=== PATIENT | female | born 1950 | race Caucasian/White ===

== ENCOUNTER 2017-12-31 10:57 | Outpatient (CLI) ==
[2015-01-23 00:45] VITALS: BMI 27.1
== END 2017-12-31 10:58 | disposition home or self-care (01) ==
LOC: RAD 10:57
PROVIDERS: ATTEND Internal Medicine
DX: Z12.31 Encounter for screening mammogram for malignant neoplasm of breast (principal)
CPT/HCPCS: 77067

== ENCOUNTER 2018-01-21 09:00 | Outpatient (CLI) ==
[2015-01-23 00:45] VITALS: BMI 27.1
--- NOTE | 2018-01-21 09:50 | CT ---
EXAM: CT of the cervical spine without contrast History: Neck pain. Technique: Multiplanar CT images through the cervical spine were obtained without the administration of IV contrast Findings: The visualized upper lungs are clear. The visualized airway remains patent. Reversal of the normal cervical lordosis. No acute fracture or subluxation of the cervical spine. N o prevertebral soft tissue swelling. Predental space is not widened. Moderate to severe disc space narrowing at C5-6 and C6-7 with endplate sclerosis and osteophyte formation. Mild to moderate disc s pace narrowing at C4-5. Bilateral thyroid nodules. C2-3: No significant bony central canal stenosis or bony neural foraminal narrowing. C3-4: No significant bony central canal stenosis. Severe right and mild to moderate left bony neura l foraminal narrowing secondary to uncovertebral and facet hypertrophy. C4-5: No significant bony central canal stenosis. Severe right and moderate left bony neural forami nal narrowing secondary to uncovertebral and facet hypertrophy. C5-6: Mild to moderate bony central canal stenosis. Moderate to severe bilateral bony neural forami nal narrowing secondary to uncovertebral and facet hypertrophy. C6-7: Mild to moderate bony central canal stenosis. Moderate to severe bilateral bony neural forami nal narrowing secondary to uncovertebral and facet hypertrophy. Impression: 1. No acute osseous abnormality of the cervical spine. 2. Moderate to severe degenerative disc disease at C5-6 and C6-7. 3. Level by level analysis as detailed above. 4. Bilateral thyroid nodules. Correlate with thyroid ultrasound.
--- NOTE | 2018-01-21 10:01 | US ---
EXAM: Ultrasound bilateral carotid duplex. HISTORY: Neck pain. Hypertension. Syncope. COMPARISON: 08/13/2015. TECHNIQUE: Multiple [place] scale and color Doppler images were obtained. FINDINGS: Please note that estimates of internal carotid artery stenoses are based upon NASCET crite bruno. Right carotid: Mild plaquing noted without 50% or greater stenosis. Peak systolic velocity measurem ent in the right internal carotid artery is 0.8 meters per second. Right internal to common carotid artery peak systolic velocity ratio measures 1.2. End diastolic velocity measurement in the right in ternal carotid artery is 0.3 meters per second. Flow in the right vertebral artery is antegrade. Left carotid: Mild plaquing noted without 50% or greater stenosis. Peak systolic velocity measureme nt in the left internal carotid artery is 0.7 meters per second. Left internal to common carotid art rissa peak systolic velocity ratio measures 1.0. End diastolic velocity measurement in the left international marketing coordinator al carotid artery measures 0.3 meters per second. Flow in the left vertebral artery is antegrade. IMPRESSION: 1. Mild, less than 50%, stenosis in the right and left internal carotid arteries. 2. Antegrade flow in both vertebral arteries.
--- NOTE | 2018-01-21 10:04 | CT ---
EXAM: CT of the head with and without contrast History: Syncope. Comparison: Head CT 22,015 Technique: Multiplanar CT images through the head were obtained with and without the administration of IV contrast Findings: The visualized paranasal sinuses and mastoid air cells are clear in general. No acute katie varial abnormalities. Intracranially the ventricular and cisternal spaces are normal in size, shape and configuration for a patient of this age. No dominant mass or midline shift. No hydrocephalous. No acute intracranial hemorrhage or abnormal extraaxial fluid collections. No abnormal contrast enhancement. Impression: Unremarkable study
== END 2018-01-21 09:01 | disposition home or self-care (01) ==
LOC: RAD 09:00
PROVIDERS: ATTEND Internal Medicine
DX: R55 Syncope and collapse (principal); I10 Essential (primary) hypertension; M54.2 Cervicalgia

== ENCOUNTER 2018-06-25 09:53 | Outpatient (CLI) | payer OTHER ==
[2015-01-23 00:45] VITALS: BMI 27.1
--- NOTE | 2018-06-25 10:37 | DI ---
EXAM: Chest two view, frontal and lateral views. HISTORY: Restrictive lung disease. COMPARISON: 01/22/2015. FINDINGS: The heart size is normal. Aortic atherosclerotic calcifications present. There is no pul monary vascular congestion. The lungs are clear save for calcified granulomatous changes. No pleura l effusion or pneumothorax is seen. No acute osseous abnormality identified. Since the prior study, there has been no significant interval change. IMPRESSION: No acute cardiopulmonary process.
--- NOTE | 2018-06-25 10:44 | DEXA ---
EXAM: DEXA scan. HISTORY: Post menopausal. COMPARISON: 04/23/2007. TECHNIQUE: [employer] [id number]. DEXA scan lumbar spine performed. Quality of the study is good. BMD is 1.132 grams per square centi meter. T-score -0.4. Z-score 1.0. DEXA scan hips performed. Quality of the study is good. BMD 0.923 grams per square centimeter. T-sc ore -0.7. Z-score 0.6. IMPRESSION: According to the World Health Organization classification, lumbar spine and hip bone mineral density demonstrates normal mineralization, with no increased fracture risk. Ten-year major osteoporotic fra cture risk is 14.2%. Ten-year hip fracture risk is 1.4%. Since the prior study, there has been no s ignificant interval change.
== END 2018-06-25 09:54 | disposition home or self-care (01) ==
LOC: RAD 09:53
PROVIDERS: ATTEND Internal Medicine
DX: Z78.0 Asymptomatic menopausal state (principal); J98.4 Other disorders of lung; R55 Syncope and collapse

== ENCOUNTER 2022-11-16 18:54 | Inpatient (IN) ==
--- NOTE | 2022-11-16 18:58 | ED.PDOC ---
General ED Provider: Dr. ARNOLDO CHACON MD Chief Complaint: Non-specific Complaint Stated Complaint: Patient presents with headache, fever, nausea, emesis and myalgias. She had onset of symptoms one day ago. Denies chest pain, dyspnea, cough, abdominal pain. She did have urinary frequency 3 days ago though this improved after she took Azo. Time Seen by Provider: 11/16/22 18:58 Primary Care Provider: KHUSHBOO ESCOBAR Nursing and Triage Documentation Reviewed and Agree: Yes Does patient meet sepsis criteria?: Yes If yes, has appropriate treatment been initiated?: Yes System Inflammatory Response Syndrome: Temp 101F or Greater and Pulse >90 BPM Sepsis Protocol: For patient's 13 years and over: Temp is 96.8 and below OR 101 and greater Pulse >90 BPM Resp >20/minute Acutely Altered Mental Status Are patient's symptoms suggestive of a new infection, such as: -Pneumonia -Skin, Soft Tissue -Endocarditis -UTI -Bone, Joint Infection -Implantable Device -Acute Abdominal Infection -Wound Infection -Meningitis -Blood Stream Catheter Infection -Unknown Miscellaneous Complaint Exam Febrile Illness/Adult Complaint/Exam Onset/Duration: one day Symptoms Are: Still present Timing: Constant Highest Temperature Recorded: 103.9 Initial Severity: Mild Current Severity: Severe Aggravating: Reports None Alleviating: Reports None Associated Signs and Symptoms: Reports Headache, Nausea, Vomiting and Myalgia Pseudomonas Risk Factors: Reports None Serious Bacterial Infection Risk Factors: Reports None Current Antibiotic Use: No Related Surgical History: None Review of Systems Review Of Systems Constitutional: Reports Fever and Malaise Eyes: Reports No symptoms Ears, Nose, Mouth, Throat: Reports No symptoms Respiratory: Reports No symptoms Cardiac: Reports No symptoms GI: Reports Nausea and Vomiting : Reports No symptoms Musculoskeletal: Reports Muscle pain Skin: Reports No symptoms Neurological: Reports Headache Endocrine: Reports No symptoms Hematologic/Lymphatic: Reports No symptoms All Other Systems: Reviewed and Negative PFSH Female Reproductive History Menstrual Hx Hysterectomy: No Hx Tubal Ligation: No Physical Exam Physical Exam Appearance: Reports Ill-appearing, No pain distress, Well-nourished and Other (Patient is alert and oriented. She is vomiting intermittently during examination. ) Ill-appearing: Moderate Pain Distress: None Eyes: Reports MILA and EOMI ENT: Reports Nose normal, Oropharynx normal and Dry mucosa Neck: Supple Respiratory: Reports Airway patent, Breath sounds clear and Breath sounds equal Cardiovascular: Reports No rub, No murmur and Tachycardia GI/: Reports Soft, Nontender, No masses and Bowel sounds normal Musculoskeletal: Reports Not Examined Skin: Reports Warm and Dry Neurological: Reports Motor intact, Alert and Oriented Psychiatric: Reports Affect appropriate and Mood appropriate Interpretation Radiology Interpretation Radiology Interpretation By: Radiologist Exam Interpreted: Portable CXR (no acute cardiopulmonary findings) EKG Interpretation Time of EKG #1: 19:12 Rate: Tachy (148bpm) Rhythm: Sinus Ectopy: PACs [place]: NL ST Segment: Other (depression leads V5-V6) Interpretation: sinus tachycardia, PACS, possible lateral subendocardial injury Re-Evaluation Re-Evaluation Time of Re-Evaluation: 20:19 Status: Improved Vital Signs Stable: Yes (afebrile, pulse 90s) Pain Level: headache improved Appearance: NAD Critical Care Note Critical Care Note Total Critical Care Time (mins): 0 Course Course Hematology/Chemistry: 11/16/22 19:21 11/16/22 19:21 Orders, Labs, Meds: Lab Review 11/16/22 11/16/22 11/16/22 19:20 19:20 19:21 WBC 8.59 RBC 3.94 L Hgb 11.8 L Hct 35.8 L MCV 90.9 MCH 29.9 MCHC 33.0 RDW Coeff of David 13.4 Plt Count 151 Immature Gran % (Auto) 0.3 Neut % (Auto) 96.2 H Lymph % (Auto) 3.0 L [place] % (Auto) 0.3 Eos % (Auto) 0.1 Baso % (Auto) 0.1 Neut # (Auto) 8.3 H Lymph # (Auto) 0.3 L [place] # (Auto) 0.0 L Eos # (Auto) 0.0 Baso # (Auto) 0.0 Immature Gran # (Auto) 0.0 Puncture Site Base Excess O2 Saturation ABG pH ABG pCO2 ABG pO2 ABG HCO3 ABG Total CO2 Jt Test Hemoglobin Oxyhemoglobin Carboxyhemoglobin Total Hemoglobin FiO2 % Sodium Potassium Chloride Carbon Dioxide Anion Gap BUN Creatinine Estimated GFR (MDRD) BUN/Creatinine Ratio Glucose Lactic Acid Calcium Magnesium Total Bilirubin AST ALT Alkaline Phosphatase Troponin I Total Protein Albumin Globulin Albumin/Globulin Ratio Urine Color Urine Clarity Urine pH Ur Specific [place] Urine Protein Urine Glucose (UA) Urine Ketones Urine Blood Urine Nitrite Urine Bilirubin Urine Urobilinogen Ur Leukocyte Esterase Urine Microscopic RBC Urine Microscopic WBC Ur Squamous Epith Cells Urine Bacteria Urine Mucus Influ A Molecular Assay Negative by naat Influ B Molecular Assay Negative by naat SARS CoV-2 RNA Rapid JARROD Negative 11/16/22 11/16/22 11/16/22 19:21 19:24 19:37 WBC RBC Hgb Hct MCV MCH MCHC RDW Coeff of David Plt Count Immature Gran % (Auto) Neut % (Auto) Lymph % (Auto) [place] % (Auto) Eos % (Auto) Baso % (Auto) Neut # (Auto) Lymph # (Auto) [place] # (Auto) Eos # (Auto) Baso # (Auto) Immature Gran # (Auto) Puncture Site Lb Base Excess 0 O2 Saturation 98.6 H ABG pH 7.57 H* ABG pCO2 24.0 L ABG pO2 100.0 ABG HCO3 22.0 ABG Total CO2 22.7 Jt Test + Hemoglobin 1.0 Oxyhemoglobin 95.6 Carboxyhemoglobin 3.7 H Total Hemoglobin 12.0 FiO2 % 21.0 Sodium 135.7 Potassium 3.16 L Chloride 106.6 Carbon Dioxide 22.5 Anion Gap 9.76 BUN 38.9 H Creatinine 1.32 H Estimated GFR (MDRD) 39.00 BUN/Creatinine Ratio 29.46 Glucose 126.4 H Lactic Acid 1.26 Calcium 8.48 Magnesium 1.72 Total Bilirubin 1.30 AST 36.3 H ALT 29.9 Alkaline Phosphatase 164.6 H Troponin I < 0.012 Total Protein 7.33 Albumin 3.95 Globulin 3.38 Albumin/Globulin Ratio 1.16 Urine Color Urine Clarity Urine pH Ur Specific [place] Urine Protein Urine Glucose (UA) Urine Ketones Urine Blood Urine Nitrite Urine Bilirubin Urine Urobilinogen Ur Leukocyte Esterase Urine Microscopic RBC Urine Microscopic WBC Ur Squamous Epith Cells Urine Bacteria Urine Mucus Influ A Molecular Assay Influ B Molecular Assay SARS CoV-2 RNA Rapid JARROD 11/16/22 20:35 WBC RBC Hgb Hct MCV MCH MCHC RDW Coeff of David Plt Count Immature Gran % (Auto) Neut % (Auto) Lymph % (Auto) [place] % (Auto) Eos % (Auto) Baso % (Auto) Neut # (Auto) Lymph # (Auto) [place] # (Auto) Eos # (Auto) Baso # (Auto) Immature Gran # (Auto) Puncture Site Base Excess O2 Saturation ABG pH ABG pCO2 ABG pO2 ABG HCO3 ABG Total CO2 Jt Test Hemoglobin Oxyhemoglobin Carboxyhemoglobin Total Hemoglobin FiO2 % Sodium Potassium Chloride Carbon Dioxide Anion Gap BUN Creatinine Estimated GFR (MDRD) BUN/Creatinine Ratio Glucose Lactic Acid Calcium Magnesium Total Bilirubin AST ALT Alkaline Phosphatase Troponin I Total Protein Albumin Globulin Albumin/Globulin Ratio Urine Color Yellow Urine Clarity Slightly Urine pH 5.5 Ur Specific [place] 1.020 Urine Protein 2+ H Urine Glucose (UA) Negative Urine Ketones Negative Urine Blood 2+ H Urine Nitrite Negative Urine Bilirubin Negative Urine Urobilinogen 2.0 H Ur Leukocyte Esterase 1+ H Urine Microscopic RBC 30-50 Urine Microscopic WBC 50-100 Ur Squamous Epith Cells Not present Urine Bacteria 4+ Urine Mucus 3+ Influ A Molecular Assay Influ B Molecular Assay SARS CoV-2 RNA Rapid JARROD Orders Category Date Time Status ABG DRAW REQUEST Stat CARDIO 11/16/22 19:15 Completed EKG-(ED ONLY) Stat CARDIO 11/16/22 19:07 Completed EKG-(ED ONLY) Stat CARDIO 11/16/22 21:34 Ordered NEBULIZER TREATMENT Stat CARDIO 11/16/22 20:50 Ordered Saline Lock [ED IV/MEDIPORT/POWERPORT] .ONCE EMERGENCY 11/16/22 19:07 Active ABG COOX Stat LAB 11/16/22 19:24 Completed BLOOD CULTURE (ED ONLY) Stat LAB 11/16/22 19:37 Received CBC W/ AUTO DIFF Stat LAB 11/16/22 19:21 Completed CMP [COMPREHENSIVE METABOLIC PANEL] Stat LAB 11/16/22 19:21 Completed COVID [SARS COV-2 RNA RAPID JARROD] Stat LAB 11/16/22 19:20 Completed FLU A & B MOLECULAR [FLU A/B MOLECULAR] Stat LAB 11/16/22 19:20 Completed LACTIC ACID Stat LAB 11/16/22 19:37 Completed MAGNESIUM Stat LAB 11/16/22 19:21 Completed TROPONIN I Stat LAB 11/16/22 19:21 Completed URINALYSIS C & S IF INDICATED Stat LAB 11/16/22 20:35 Completed URINE CULTURE Stat LAB 11/16/22 20:35 Received 0.9 % Sodium Chloride [Saline Flush] MEDS 11/16/22 19:07 Active 1 syr IVF PRN PRN Acetaminophen [Tylenol] MEDS 11/16/22 19:21 Discontinued 650 mg RC ONCE STA Cephalexin [Keflex] MEDS 11/16/22 21:30 Discontinued 500 mg PO ONCE STA Diltiazem HCl [Cardizem Inj] MEDS 11/16/22 21:50 Discontinued 20 mg IVP ONCE STA Ipratropium/Albuterol Neb [Duoneb] MEDS 11/16/22 20:50 Discontinued 3 ml NEB ONCE STA Ketorolac Tromethamine [Toradol] MEDS 11/16/22 19:15 Discontinued 30 mg IVP ONCE STA Ondansetron HCl/Pf [Zofran 4 mg/2 ml] MEDS 11/16/22 19:07 Discontinued 8 mg IVP ONCE STA Potassium Chloride [K-Dur] MEDS 11/16/22 21:29 Discontinued 40 meq PO ONCE STA Sodium Chloride 0.9% [Sodium Chloride] 1,000 ml MEDS 11/16/22 19:07 Discontin ued IV BOLUS Sodium Chloride 0.9% [Sodium Chloride] 1,000 ml MEDS 11/16/22 20:23 Discontinu ed IV BOLUS CXR [CHEST, 1V AP ONLY] Stat RADS 11/16/22 19:17 Completed Medications Generic Name Dose Route Start Last Admin Trade Name Freq PRN Reason Stop Dose Admin Sodium Chloride 1 syr 11/16/22 19:07 0.9% Sodium Chloride 10 Ml Disp.Syrin IVF PRN PRN To flush IV Discontinued Medications Generic Name Dose Route Start Last Admin Trade Name Freq PRN Reason Stop Dose Admin Acetaminophen 650 mg 11/16/22 19:21 11/16/22 19:32 Acetaminophen 650 Mg Supp.Rect RC 11/16/22 19:22 650 mg ONCE STA Administration Albuterol/Ipratropium 3 ml 11/16/22 20:50 11/16/22 21:11 Ipratropium/Albuterol Vial.Neb NEB 11/16/22 20:51 3 ml ONCE STA Administration Cephalexin 500 mg 11/16/22 21:30 11/16/22 21:35 Cephalexin 500 Mg Capsule PO 11/16/22 21:31 500 mg ONCE STA Administration Diltiazem HCl 20 mg 11/16/22 21:50 Diltiazem Hcl Inj 25 Mg/5 Ml Vial IVP 11/16/22 21:51 ONCE STA Sodium Chloride 1,000 mls @ 1,000 mls/hr 11/16/22 19:07 11/16/22 19:32 Sodium Chloride IV 11/16/22 20:06 1,000 mls/hr BOLUS STA Administration Sodium Chloride 1,000 mls @ 1,000 mls/hr 11/16/22 20:23 11/16/22 20:45 Sodium Chloride IV 11/16/22 21:22 1,000 mls/hr BOLUS STA Administration Ketorolac Tromethamine 30 mg 11/16/22 19:15 11/16/22 19:32 Ketorolac Tromethamine 30 Mg/Ml Vial IVP 11/16/22 19:16 30 mg ONCE STA Administration Ondansetron HCl 8 mg 11/16/22 19:07 11/16/22 19:32 Ondansetron Hcl/Pf 4 Mg/2 Ml Sdv IVP 11/16/22 19:08 8 mg ONCE STA Administration Potassium Chloride 40 meq 11/16/22 21:29 11/16/22 21:35 Potassium Chloride 20 Meq Tab PO 11/16/22 21:30 40 meq ONCE STA Administration Vital Signs: Temp Pulse Resp BP Pulse Ox 11/16/22 19:50 99.5 F 96 24 H 146/63 H 98 11/16/22 18:59 103.9 F H 153 H 20 179/94 H 90 L Discharge Plan Discharge Patient Disposition: PLACED OBSERVATION Discharge Problem: Acute viral syndrome, Acute urinary tract infection, Acute hypokalemia Instructions: Urinary Tract Infection in Women (DC), Viral Syndrome (ED) Prescriptions: New ondansetron 8 mg tablet,disintegrating 8 mg PO Q8H PRN (Reason: nausea and vomiting) Qty: 14 0RF cephalexin 250 mg capsule 250 mg PO QID Qty: 28 0RF No Action aspirin 81 MG tablet,delayed release (DR/EC) 81 mg PO QPM verapamil 80 MG tablet 160 mg PO BID Label Comments: TOOK 2 TONIGHT AT 8PM Centrum Silver 1 EACH tablet 1 tab PO DAILY Vitamin C 1,000 mg Tablet Extended Release 1,000 mg PO Q12H Elderberry 200 mg Capsule 200 mg PO DAILY cholecalciferol (vitamin D3) [Vitamin D3] 50 mcg (2,000 unit) Capsule 50 mcg PO DAILY Breztri Aerosphere 160-9-4.8 mcg/actuation HFA aerosol inhaler See Rx Instructions .ROUTE .COMPLEX Rx Instructions: take as directed Did you review [place] STAFF ANALYST for ALL controlled substances?: Not Applicable Discussed opioids are addictive and Narcan is available by prescription or from pharmacy.: No Activity Restrictions/Additional Instructions: Take tylenol or ibuprofen as directed for fever or headache. ED Provider: ARNOLDO CHACON Condition: Stable Physician Progress Note: []
[2022-11-16 19:03] VITALS: BMI 27.9
[2022-11-16] MEDS ORDERED: ZOFRAN 4 MG/2 ML IVP STA (19:07)
[2022-11-16] MEDS ORDERED: SODIUM CHLORIDE 1,000 ML IV STA ×2 (19:07→20:23)
[2022-11-16] MEDS ORDERED: TORADOL IVP STA (19:15)
[2022-11-16] MEDS ORDERED: TYLENOL RC STA (19:21)
[2022-11-16 19:28] LABS: BASOPHILS % (AUTO) 0.1 % (0.0-3.0); EOSINOPHILS % (AUTO) 0.1 % (0.0-7.0); HEMATOCRIT 35.8 % (37.0-47.0); HEMOGLOBIN 11.8 g/dl (12.0-16.0); IMMATURE GRANULOCYTE % (AUTO) 0.3 % (0.0-5.0); LYMPHOCYTES # (AUTO) 0.3 K/uL (0.60-3.4); MEAN CORPUSCULAR HEMOGLOBIN 29.9 pg (27.0-31.0); MEAN CORPUSCULAR VOLUME 90.9 fl (81.0-99.0); MONOCYTES % (AUTO) 0.3 (0-10); NEUTROPHILS # (AUTO) 8.3 K/ul (2.0-6.9); NEUTROPHILS % (AUTO) 96.2 % (42.2-75.2); PLATELET COUNT 151 10^3/uL (140-440); RDW COEFFICIENT OF VARIATION 13.4 % (11.6-14.8); RED BLOOD COUNT 3.94 10^6/ul (4.20-5.40); WHITE BLOOD COUNT 8.59 K/ul (4.6-10.2)
[2022-11-16 19:31] LABS: ABG O2 HGB 95.6 % (95-100); BEecf 0 (-2.0-3.0); COHb 3.7 (0.5-1.5); TCO2 22.7 (19-24); sO2 98.6 % (94-98)
[2022-11-16 19:34] LABS: ABG PH 7.57 (7.35-7.45)
[2022-11-16 19:41] LABS: ALANINE AMINOTRANSFERASE 29.9 U/L (0-35); ALBUMIN 3.95 g/dL (3.5-5.0); ALKALINE PHOSPHATASE 164.6 U/L (53-141); ASPARTATE AMINO TRANSFERASE 36.3 U/L (14-36); BLOOD UREA NITROGEN 38.9 mg/dL (7-17); CALCIUM 8.48 mg/dL (8.4-10.2); CARBON DIOXIDE 22.5 mmol/L (22-30.0); CHLORIDE 106.6 mmol/L (98-107); CREATININE 1.32 mg/dL (0.60-1.30); GLUCOSE 126.4 mg/dL (74-106); MAGNESIUM 1.72 mg/dL (1.6-2.3); POTASSIUM 3.16 mmol/L (3.5-5.1); SODIUM 135.7 mmol/L (134.5-145); TOTAL PROTEIN 7.33 g/dL (6.3-8.2)
[2022-11-16 19:53] LABS: TROPONIN I < 0.012 ng/ml (0.0000-0.120)
--- NOTE | 2022-11-16 19:55 | DI ---
EXAM: CHEST RADIOGRAPH TECHNIQUE: Single frontal chest radiograph. HISTORY: Nausea and fever. COMPARISON: 06/25/2018. FINDINGS: Mild pulmonary scarring bilaterally. Old calcified granulomatous disease. Otherwise clear lungs. The heart size is normal. There is calcification in the aorta consistent with atherosclerosis. There is no pleural effusion. There is no pneumothorax. IMPRESSION: 1. Mild pulmonary scarring bilaterally. 2. Old calcified granulomatous disease. 3. Atherosclerosis. 4. Otherwise unremarkable chest radiograph.
[2022-11-16 20:01] LABS: MOLECULAR FLU A NEGATIVE BY NAAT (NEGATIVE); MOLECULAR FLU B NEGATIVE BY NAAT (NEGATIVE)
[2022-11-16 20:04] LABS: SARS COV-2 RNA RAPID NAAT NEGATIVE (NEGATIVE)
[2022-11-16] MEDS ORDERED: DUONEB NEB STA (20:50)
[2022-11-16 21:17] LABS: BILIRUBIN,URINE Negative (NEGATIVE); CLARITY,URINE Slightly (CLEAR); COLOR,URINE Yellow (YELLOW); GLUCOSE, URINE (UA) Negative (NEGATIVE); KETONES,URINE Negative (NEGATIVE); LEUKOCYTE ESTERASE ,URINE 1+ (NEGATIVE); NITRITE,URINE Negative (NEGATIVE); PH,URINE 5.5 (5-9); PROTEIN,URINE 2+ (NEGATIVE); URINE, BLOOD 2+ (NEGATIVE)
[2022-11-16 21:24] LABS: BACTERIA,URINE 4+ (NOT PRESENT); SQUAMOUS EPITHELIAL CELL,UR NOT PRESENT (0-5); URINE RBC, MICROSCOPIC 30-50 (0-2); URINE WBC, MICROSCOPIC 50-100 (0-2)
[2022-11-16 21:25] LABS: MUCUS,URINE 3+ (NOT PRESENT)
[2022-11-16] MEDS ORDERED: K-DUR PO STA (21:29)
[2022-11-16] MEDS ORDERED: KEFLEX PO STA (21:30)
[2022-11-16] MEDS ORDERED: CARDIZEM INJ IVP STA (21:50)
--- NOTE | 2022-11-16 22:06 | PCM ---
Chief Complaint Chief Complaint: headache, nausea, emesis, fever History of Present Illness History of Present Illness: Patient admitted with acute viral syndrome, acute urinary tract infection, hypokalemia and sinus tachycardia. Review of Systems Constitutional: Reports Fever and Chills Eyes: Reports No symptoms Ears: Reports No symptoms Nose: Reports No symptoms Throat: Reports No symptoms Mouth: Reports No symptoms Respiratory: Reports No symptoms Cardiovascular: Reports No symptoms Gastrointestinal: Reports Nausea and Vomiting Genitourinary: Reports dysuria and frequency Neurological: Reports Headache Musculoskeletal: Reports No symptoms Skin: Reports No symptoms Immunology: Reports No symptoms Hematology: Reports No symptoms Endocrine: Reports No symptoms Psychiatric: Reports No symptoms Allergies Allergies Allergy/AdvReac Type Severity Reaction Status Date / Time acetaminophen [From Lortab] AdvReac Nausea Verified 11/16/22 19:03 hydrocodone bitartrate AdvReac Nausea Verified 11/16/22 19:03 [From Lortab] oxycodone HCl [From Percocet] AdvReac Nausea Verified 11/16/22 19:03 Medications Medications: Medications Generic Name Dose Route Start Last Admin Trade Name Freq PRN Reason Stop Dose Admin Potassium Chloride/Sodium Chloride 1,000 mls @ 100 mls/hr 11/16/22 22:00 Sodium Chloride 0.9%-Kcl 20 Meq IV .Q10H JERMAN CEFTRIAXONE/D5W 1 GM PREMIX 1 gm in 50 mls @ 75 mls/hr 11/16/22 22:30 Rocephin 1 Gm/50 Ml D5w IV 11/19/22 22:29 DAILY JERMAN Ondansetron HCl 4 mg 11/16/22 21:56 Ondansetron Hcl/Pf 4 Mg/2 Ml Sdv IVP Q6H PRN Nausea / Vomiting Sodium Chloride 1 syr 11/16/22 19:07 0.9% Sodium Chloride 10 Ml Disp.Syrin IVF PRN PRN To flush IV Verapamil HCl 180 mg 11/16/22 22:30 Verapamil Hcl 180 Mg Tablet.Er PO BID [facility] Body Composition Height: 5 ft 5 in Weight: 76.204 kg Body Mass Index (BMI): 27.9 Vital Signs Temperature: 99.5 F Pulse Rate: 96 Respiratory Rate: 24 Blood Pressure: 146/63 O2 Sat by Pulse Oximetry: 98 Physical Examination Appearance: Reports Ill-appearing, No pain distress and Well-nourished Ill-appearing: Moderate Pain Distress: None Eyes: Reports EOMI and Conjunctiva clear ENT: Reports Nose normal, Oropharynx normal and Dry mucosa Neck: Supple Respiratory: Reports Airway patent, Breath sounds clear and Breath sounds equal Cardiovascular: Reports No rub, No murmur and Tachycardia GI/: Reports Soft, Nontender, No masses and Bowel sounds normal Musculoskeletal: Reports Normal strength, ROM intact and No edema Skin: Reports Warm, Dry and Normal color Neurological: Reports Motor intact, Alert and Oriented Psychiatric: Reports Affect appropriate and Mood appropriate Lab/Tests/Diagnostic Imaging Lab/Tests/Diagnostic Imaging: Lab Review 11/16/22 11/16/22 11/16/22 19:20 19:20 19:21 WBC 8.59 RBC 3.94 L Hgb 11.8 L Hct 35.8 L MCV 90.9 MCH 29.9 MCHC 33.0 RDW Coeff of David 13.4 Plt Count 151 Immature Gran % (Auto) 0.3 Neut % (Auto) 96.2 H Lymph % (Auto) 3.0 L [place] % (Auto) 0.3 Eos % (Auto) 0.1 Baso % (Auto) 0.1 Neut # (Auto) 8.3 H Lymph # (Auto) 0.3 L [place] # (Auto) 0.0 L Eos # (Auto) 0.0 Baso # (Auto) 0.0 Immature Gran # (Auto) 0.0 Puncture Site Base Excess O2 Saturation ABG pH ABG pCO2 ABG pO2 ABG HCO3 ABG Total CO2 Jt Test Hemoglobin Oxyhemoglobin Carboxyhemoglobin Total Hemoglobin FiO2 % Sodium Potassium Chloride Carbon Dioxide Anion Gap BUN Creatinine Estimated GFR (MDRD) BUN/Creatinine Ratio Glucose Lactic Acid Calcium Magnesium Total Bilirubin AST ALT Alkaline Phosphatase Troponin I Total Protein Albumin Globulin Albumin/Globulin Ratio Urine Color Urine Clarity Urine pH Ur Specific [place] Urine Protein Urine Glucose (UA) Urine Ketones Urine Blood Urine Nitrite Urine Bilirubin Urine Urobilinogen Ur Leukocyte Esterase Urine Microscopic RBC Urine Microscopic WBC Ur Squamous Epith Cells Urine Bacteria Urine Mucus Influ A Molecular Assay Negative by naat Influ B Molecular Assay Negative by naat SARS CoV-2 RNA Rapid JARROD Negative 11/16/22 11/16/22 11/16/22 19:21 19:24 19:37 WBC RBC Hgb Hct MCV MCH MCHC RDW Coeff of David Plt Count Immature Gran % (Auto) Neut % (Auto) Lymph % (Auto) [place] % (Auto) Eos % (Auto) Baso % (Auto) Neut # (Auto) Lymph # (Auto) [place] # (Auto) Eos # (Auto) Baso # (Auto) Immature Gran # (Auto) Puncture Site Lb Base Excess 0 O2 Saturation 98.6 H ABG pH 7.57 H* ABG pCO2 24.0 L ABG pO2 100.0 ABG HCO3 22.0 ABG Total CO2 22.7 Jt Test + Hemoglobin 1.0 Oxyhemoglobin 95.6 Carboxyhemoglobin 3.7 H Total Hemoglobin 12.0 FiO2 % 21.0 Sodium 135.7 Potassium 3.16 L Chloride 106.6 Carbon Dioxide 22.5 Anion Gap 9.76 BUN 38.9 H Creatinine 1.32 H Estimated GFR (MDRD) 39.00 BUN/Creatinine Ratio 29.46 Glucose 126.4 H Lactic Acid 1.26 Calcium 8.48 Magnesium 1.72 Total Bilirubin 1.30 AST 36.3 H ALT 29.9 Alkaline Phosphatase 164.6 H Troponin I < 0.012 Total Protein 7.33 Albumin 3.95 Globulin 3.38 Albumin/Globulin Ratio 1.16 Urine Color Urine Clarity Urine pH Ur Specific [place] Urine Protein Urine Glucose (UA) Urine Ketones Urine Blood Urine Nitrite Urine Bilirubin Urine Urobilinogen Ur Leukocyte Esterase Urine Microscopic RBC Urine Microscopic WBC Ur Squamous Epith Cells Urine Bacteria Urine Mucus Influ A Molecular Assay Influ B Molecular Assay SARS CoV-2 RNA Rapid JARROD 11/16/22 20:35 WBC RBC Hgb Hct MCV MCH MCHC RDW Coeff of David Plt Count Immature Gran % (Auto) Neut % (Auto) Lymph % (Auto) [place] % (Auto) Eos % (Auto) Baso % (Auto) Neut # (Auto) Lymph # (Auto) [place] # (Auto) Eos # (Auto) Baso # (Auto) Immature Gran # (Auto) Puncture Site Base Excess O2 Saturation ABG pH ABG pCO2 ABG pO2 ABG HCO3 ABG Total CO2 Jt Test Hemoglobin Oxyhemoglobin Carboxyhemoglobin Total Hemoglobin FiO2 % Sodium Potassium Chloride Carbon Dioxide Anion Gap BUN Creatinine Estimated GFR (MDRD) BUN/Creatinine Ratio Glucose Lactic Acid Calcium Magnesium Total Bilirubin AST ALT Alkaline Phosphatase Troponin I Total Protein Albumin Globulin Albumin/Globulin Ratio Urine Color Yellow Urine Clarity Slightly Urine pH 5.5 Ur Specific [place] 1.020 Urine Protein 2+ H Urine Glucose (UA) Negative Urine Ketones Negative Urine Blood 2+ H Urine Nitrite Negative Urine Bilirubin Negative Urine Urobilinogen 2.0 H Ur Leukocyte Esterase 1+ H Urine Microscopic RBC 30-50 Urine Microscopic WBC 50-100 Ur Squamous Epith Cells Not present Urine Bacteria 4+ Urine Mucus 3+ Influ A Molecular Assay Influ B Molecular Assay SARS CoV-2 RNA Rapid JARROD Orders Category Date Time Status PLACE PATIENT OBSERVATION .TO [facility] (MONITORED BED ADMISSION 11/16/22 21:56 Active ) ABG DRAW REQUEST Stat CARDIO 11/16/22 19:15 Completed EKG-(ED ONLY) Stat CARDIO 11/16/22 19:07 Completed EKG-(ED ONLY) Stat CARDIO 11/16/22 21:34 Ordered NEBULIZER TREATMENT Stat CARDIO 11/16/22 20:50 Ordered OXYGEN Routine CARDIO 11/16/22 21:58 Ordered ACTIVITY .Up With Assistance CARE 11/16/22 21:56 Active GIVE HS SNACK 2100 CARE 11/16/22 21:58 Active INTAKE & OUTPUT Q8HR CARE 11/16/22 21:56 Active IP: INSERT SALINE LOCK ONCE CARE 11/16/22 21:56 Active TELEMETRY MONITORING TELE CARE 11/16/22 21:56 Active VITAL SIGNS Q4HR CARE 11/16/22 21:57 Active VITAL SIGNS Q8HR CARE 11/16/22 21:56 Active CLEAR LIQUID DIET DIETARY 11/16/22 Dinner Ordered HS SNACK DIETARY 11/16/22 Dinner Ordered Saline Lock [ED IV/MEDIPORT/POWERPORT] .ONCE EMERGENCY 11/16/22 19:07 Active ABG COOX Stat LAB 11/16/22 19:24 Completed BLOOD CULTURE (ED ONLY) Stat LAB 11/16/22 19:37 Received CBC W/ AUTO DIFF DAILY@0600 LAB 11/17/22 06:00 Ordered CBC W/ AUTO DIFF DAILY@0600 LAB 11/18/22 06:00 Ordered CBC W/ AUTO DIFF Stat LAB 11/16/22 19:21 Completed CMP [COMPREHENSIVE METABOLIC PANEL] Stat LAB 11/16/22 19:21 Completed COMPREHENSIVE METABOLIC PANEL DAILY@0600 LAB 11/17/22 06:00 Ordered COMPREHENSIVE METABOLIC PANEL DAILY@0600 LAB 11/18/22 06:00 Ordered COVID [SARS COV-2 RNA RAPID JARROD] Stat LAB 11/16/22 19:20 Completed FLU A & B MOLECULAR [FLU A/B MOLECULAR] Stat LAB 11/16/22 19:20 Completed LACTIC ACID Stat LAB 11/16/22 19:37 Completed MAGNESIUM Stat LAB 11/16/22 19:21 Completed TROPONIN I Stat LAB 11/16/22 19:21 Completed URINALYSIS C & S IF INDICATED Stat LAB 11/16/22 20:35 Completed URINE CULTURE Stat LAB 11/16/22 20:35 Received 0.9 % Sodium Chloride [Saline Flush] MEDS 11/16/22 19:07 Active 1 syr IVF PRN PRN Acetaminophen [Tylenol] MEDS 11/16/22 19:21 Discontinued 650 mg RC ONCE STA Ceftriaxone/D5w 1 gm Premix [Rocephin 1 gm/50 ml D5w] MEDS 11/16/22 22:30 Ordered 1 gm in 50 ml IV DAILY Cephalexin [Keflex] MEDS 11/16/22 21:30 Discontinued 500 mg PO ONCE STA Diltiazem HCl [Cardizem Inj] MEDS 11/16/22 21:50 Discontinued 20 mg IVP ONCE STA Ipratropium/Albuterol Neb [Duoneb] MEDS 11/16/22 20:50 Discontinued 3 ml NEB ONCE STA Ketorolac Tromethamine [Toradol] MEDS 11/16/22 19:15 Discontinued 30 mg IVP ONCE STA Ondansetron HCl/Pf [Zofran 4 mg/2 ml] MEDS 11/16/22 21:56 Ordered 4 mg IVP Q6H PRN Ondansetron HCl/Pf [Zofran 4 mg/2 ml] MEDS 11/16/22 19:07 Discontinued 8 mg IVP ONCE STA Potassium Chloride [K-Dur] MEDS 11/16/22 21:29 Discontinued 40 meq PO ONCE STA Potassium Chloride in 0.9%NaCl [Sodium Chloride 0.9%- MEDS 11/16/22 22:00 Ordered KCl 20 Meq] 1,000 ml IV 100 mls/hr Sodium Chloride 0.9% [Sodium Chloride] 1,000 ml MEDS 11/16/22 19:07 Discontinued IV BOLUS Sodium Chloride 0.9% [Sodium Chloride] 1,000 ml MEDS 11/16/22 20:23 Discontinued IV BOLUS Verapamil HCl [Calan Sr] MEDS 11/16/22 22:30 Ordered 180 mg PO BID RESUSCITATION STATUS Routine OTHERS 11/16/22 21:56 Ordered CXR [CHEST, 1V AP ONLY] Stat RADS 11/16/22 19:17 Completed Medications Generic Name Dose Route Start Last Admin Trade Name Freq PRN Reason Stop Dose Admin Potassium Chloride/Sodium Chloride 1,000 mls @ 100 mls/hr 11/16/22 22:00 Sodium Chloride 0.9%-Kcl 20 Meq IV .Q10H JERMAN CEFTRIAXONE/D5W 1 GM PREMIX 1 gm in 50 mls @ 75 mls/hr 11/16/22 22:30 Rocephin 1 Gm/50 Ml D5w IV 11/19/22 22:29 DAILY JERMAN Ondansetron HCl 4 mg 11/16/22 21:56 Ondansetron Hcl/Pf 4 Mg/2 Ml Sdv IVP Q6H PRN Nausea / Vomiting Sodium Chloride 1 syr 11/16/22 19:07 0.9% Sodium Chloride 10 Ml Disp.Syrin IVF PRN PRN To flush IV Verapamil HCl 180 mg 11/16/22 22:30 Verapamil Hcl 180 Mg Tablet.Er PO BID JERMAN Discontinued Medications Generic Name Dose Route Start Last Admin Trade Name Betina PRN Reason Stop Dose Admin Acetaminophen 650 mg 11/16/22 19:21 11/16/22 19:32 Acetaminophen 650 Mg Supp.Rect RC 11/16/22 19:22 650 mg ONCE STA Administration Albuterol/Ipratropium 3 ml 11/16/22 20:50 11/16/22 21:11 Ipratropium/Albuterol Vial.Neb NEB 11/16/22 20:51 3 ml ONCE STA Administration Cephalexin 500 mg 11/16/22 21:30 11/16/22 21:35 Cephalexin 500 Mg Capsule PO 11/16/22 21:31 500 mg ONCE STA Administration Diltiazem HCl 20 mg 11/16/22 21:50 Diltiazem Hcl Inj 25 Mg/5 Ml Vial IVP 11/16/22 21:51 ONCE STA Sodium Chloride 1,000 mls @ 1,000 mls/hr 11/16/22 19:07 11/16/22 19:32 Sodium Chloride IV 11/16/22 20:06 1,000 mls/hr BOLUS STA Administration Sodium Chloride 1,000 mls @ 1,000 mls/hr 11/16/22 20:23 11/16/22 20:45 Sodium Chloride IV 11/16/22 21:22 1,000 mls/hr BOLUS STA Administration Ketorolac Tromethamine 30 mg 11/16/22 19:15 11/16/22 19:32 Ketorolac Tromethamine 30 Mg/Ml Vial IVP 11/16/22 19:16 30 mg ONCE STA Administration Ondansetron HCl 8 mg 11/16/22 19:07 11/16/22 19:32 Ondansetron Hcl/Pf 4 Mg/2 Ml Sdv IVP 11/16/22 19:08 8 mg ONCE STA Administration Potassium Chloride 40 meq 11/16/22 21:29 11/16/22 21:35 Potassium Chloride 20 Meq Tab PO 11/16/22 21:30 40 meq ONCE STA Administration Assessment (1) Acute viral syndrome: Status: Acute Code(s): B34.9 - Viral infection, unspecified SNOMED Code(s): 976507439 (2) Acute urinary tract infection: Status: Acute Code(s): N39.0 - Urinary tract infection, site not specified SNOMED Code(s): 233009799 (3) Acute hypokalemia: Status: Acute Code(s): E87.6 - Hypokalemia SNOMED Code(s): 78367609 (4) Sinus tachycardia: Status: Acute Code(s): R00.0 - Tachycardia, unspecified SNOMED Code(s): 79750717 Plan Plan: Patient will be admitted for observation and placed on telemetry. She will receive IV fluid hydration and IV antibiotics. Potassium supplement. Supplemental oxygen.
[2022-11-16] MEDS ORDERED: ROCEPHIN 1 GM/50 ML D5W 1 GM/50 ML BAG IV SCH (22:30)
[2022-11-17] MEDS: CALAN SR PO SCH ×3 (00:40→21:12)
[2022-11-17] MEDS: SODIUM CHLORIDE 0.9%-KCL 20 MEQ 1,000 ML IV SCH ×2 (00:41→13:07)
[2022-11-17 05:13] LABS: BASOPHILS % (AUTO) 0.1 % (0.0-3.0); HEMATOCRIT 32.5 % (37.0-47.0); HEMOGLOBIN 10.2 g/dl (12.0-16.0); IMMATURE GRANULOCYTE # (AUTO) 0.3 (0.0-1.0); IMMATURE GRANULOCYTE % (AUTO) 1.8 % (0.0-5.0); LYMPHOCYTES # (AUTO) 0.6 K/uL (0.60-3.4); LYMPHOCYTES % (AUTO) 3.5 (10.0-50.0); MEAN CORPUSCULAR HEMOGLOBIN 29.7 pg (27.0-31.0); MEAN CORPUSCULAR HGB CONC 31.4 (31.8-35.4); MEAN CORPUSCULAR VOLUME 94.5 fl (81.0-99.0); MONOCYTES # (AUTO) 0.9 K/uL (0.4-2.0); MONOCYTES % (AUTO) 5.3 (0-10); NEUTROPHILS # (AUTO) 15.2 K/ul (2.0-6.9); NEUTROPHILS % (AUTO) 89.3 % (42.2-75.2); PLATELET COUNT 160 10^3/uL (140-440); RDW COEFFICIENT OF VARIATION 13.9 % (11.6-14.8); RED BLOOD COUNT 3.44 10^6/ul (4.20-5.40); WHITE BLOOD COUNT 17.04 K/ul (4.6-10.2)
[2022-11-17 05:33] LABS: ALANINE AMINOTRANSFERASE 23.6 U/L (0-35); ALBUMIN 3.31 g/dL (3.5-5.0); ALKALINE PHOSPHATASE 99.5 U/L (53-141); ASPARTATE AMINO TRANSFERASE 29.1 U/L (14-36); BILIRUBIN,TOTAL 0.75 mg/dL (0.2-1.3); BLOOD UREA NITROGEN 34.2 mg/dL (7-17); CALCIUM 7.88 mg/dL (8.4-10.2); CARBON DIOXIDE 22.7 mmol/L (22-30.0); CHLORIDE 112.2 mmol/L (98-107); CREATININE 1.29 mg/dL (0.60-1.30); POTASSIUM 4.45 mmol/L (3.5-5.1); TOTAL PROTEIN 6.29 g/dL (6.3-8.2)
[2022-11-17] MEDS: LEVAQUIN 750 MG/150 ML D5W 750 MG/150 ML BAG IV SCH (09:53)
--- NOTE | 2022-11-17 10:17 | PCM.PROG ---
Date Seen by Provider: 11/17/22 Time Seen by Provider: 10:13 Subjective: dx. viral syndrome, low potassium, uti pt improved Objective: Vitals: T=97.0 F, P=78, R=18, AB=172/78, SPO2=99 HEENT: []conjunctiva clear Neck: []supple Lungs: [] no respiratory distress CVS: []rrr Abdomen: []nondistended Extremities: []mio Neurological: []alert Skin: []warm and dry Lab/Tests/Diagnostic Imaging: [] wbc 17.4, gm neg rods in blood culture, K+ 4.4 (1) Acute viral syndrome: Status: Acute Code(s): B34.9 - Viral infection, unspecified SNOMED Code(s): 542788152 (2) Acute urinary tract infection: Status: Acute Code(s): N39.0 - Urinary tract infection, site not specified SNOMED Code(s): 262239875 (3) Acute hypokalemia: Status: Acute Code(s): E87.6 - Hypokalemia SNOMED Code(s): 97323074 (4) Sinus tachycardia: Status: Acute Code(s): R00.0 - Tachycardia, unspecified SNOMED Code(s): 74909012 Plan: advance diet, hx svt pt in nsr, add levaquin
[2022-11-17] MEDS: TYLENOL PO PRN (11:14)
[2022-11-17] MEDS: ZOFRAN 4 MG/2 ML IVP PRN ×2 (12:42→20:54)
[2022-11-17] MEDS ORDERED: BENADRYL PO PRN (19:53)
[2022-11-17] MEDS ORDERED: TYLENOL PO SCH (21:00)
[2022-11-17] MEDS: ROCEPHIN 1 GM/50 ML D5W 1 GM/50 ML BAG IV SCH (21:12)
[2022-11-18] MEDS: SODIUM CHLORIDE 0.9%-KCL 20 MEQ 1,000 ML IV SCH ×2 (00:29→11:38)
[2022-11-18] MEDS ORDERED: BENADRYL PO PRN (03:40)
[2022-11-18 05:29] LABS: BASOPHILS % (AUTO) 0.1 % (0.0-3.0); EOSINOPHILS % (AUTO) 0.2 % (0.0-7.0); HEMATOCRIT 33.4 % (37.0-47.0); HEMOGLOBIN 10.7 g/dl (12.0-16.0); IMMATURE GRANULOCYTE # (AUTO) 0.1 (0.0-1.0); IMMATURE GRANULOCYTE % (AUTO) 0.6 % (0.0-5.0); LYMPHOCYTES # (AUTO) 0.6 K/uL (0.60-3.4); LYMPHOCYTES % (AUTO) 4.3 (10.0-50.0); MEAN CORPUSCULAR HEMOGLOBIN 30.3 pg (27.0-31.0); MEAN CORPUSCULAR VOLUME 94.6 fl (81.0-99.0); MONOCYTES # (AUTO) 0.8 K/uL (0.4-2.0); MONOCYTES % (AUTO) 5.8 (0-10); NEUTROPHILS # (AUTO) 12.3 K/ul (2.0-6.9); PLATELET COUNT 172 10^3/uL (140-440); RED BLOOD COUNT 3.53 10^6/ul (4.20-5.40); WHITE BLOOD COUNT 13.85 K/ul (4.6-10.2)
[2022-11-18 05:42] LABS: ALANINE AMINOTRANSFERASE 29.4 U/L (0-35); ALBUMIN 3.42 g/dL (3.5-5.0); ASPARTATE AMINO TRANSFERASE 31.7 U/L (14-36); BILIRUBIN,TOTAL 0.76 mg/dL (0.2-1.3); BLOOD UREA NITROGEN 26.9 mg/dL (7-17); CALCIUM 8.4 mg/dL (8.4-10.2); CARBON DIOXIDE 21.5 mmol/L (22-30.0); CHLORIDE 111.1 mmol/L (98-107); CREATININE 1.14 mg/dL (0.60-1.30); GLUCOSE 105.7 mg/dL (74-106); POTASSIUM 4.22 mmol/L (3.5-5.1); SODIUM 139.4 mmol/L (134.5-145); TOTAL PROTEIN 6.66 g/dL (6.3-8.2)
[2022-11-18] MEDS: CALAN SR PO SCH ×2 (09:21→20:04)
[2022-11-18] MEDS ORDERED: LASIX IVP STA (09:50)
--- NOTE | 2022-11-18 10:12 | CT ---
EXAM: CTA chest with IV contrast HISTORY: Rule out PE, shortness of breath TECHNIQUE: Multi-slice transaxial helical PE protocol. Multiplanar MIP and 3D volume rendered image s are provided. COMPARISON: 11/16/2022 chest radiograph. FINDINGS: The heart is mildly enlarged. Moderate amount of calcified plaques are seen within the thoracic aort a as well as the coronary arteries. Mediastinal and perihilar calcified granulomas are seen. No stephon dence of mediastinal adenopathy is seen. Examination for PE is limited secondary to decreased opacif ication of the pulmonary arteries as well as motion artifacts. No definite evidence of pulmonary emb olism is seen within the main or proximal segmental pulmonary arteries. No axillary adenopathy is seen. Pericholecystic fluid is seen. Small gallstones are seen within the gallbladder. Upper abdominal mesenteric edema is seen. Large amount of calcified plaque is seen wi thin the abdominal aorta. Multilevel thoracic disc space narrowing with tiny endplate osteophytes ar e seen. Small bilateral layering pleural effusions are seen. Dependent atelectasis is suggest withi n the lung bases. Bilateral patchy ground-glass and interstitial opacities are seen within lungs. T here is limited evaluation of the lungs secondary to motion artifacts. No evidence of pneumothorax i s seen. :::::::::::::::::::::::::::::: IMPRESSION: 1. Limited exam for PE secondary to decreased opacification and motion artifacts. No definite pulmo nary embolism to the level of the proximal segmental level. 2. Findings compatible with congestive heart failure with small bilateral pleural effusions and bila teral interstitial and alveolar pulmonary edema. 3. Cardiomegaly. 4. Atherosclerosis including coronary disease. 5. Upper abdominal mesenteric edema and pericholecystic fluid. 6. Other chronic/incidental findings as above. :::::::::::::::::::::::::::::: All CT scans are performed using dose optimization techniques as appropriate to the performed exam an d include at least one of the following: Automated exposure control, adjustment of the mA and/or kV according t o size, and the use of iterative reconstruction technique.
[2022-11-18] MEDS: LEVAQUIN 750 MG/150 ML D5W 750 MG/150 ML BAG IV SCH (11:27)
--- NOTE | 2022-11-18 12:31 | PCM.PROG ---
Date Seen by Provider: 11/18/22 Time Seen by Provider: 12:28 Subjective: dx. viral syndrome, uti, chf mild increase in gardner Objective: Vitals: T=98.0 F, P=99, R=18, RB=560/85, SPO2=98 HEENT: []conjunctiva clear Neck: []supple Lungs: [] crackles CVS: []rrr Abdomen: []nondistended Extremities: []warm and dry Neurological: []alert Skin: []pink Lab/Tests/Diagnostic Imaging: [] K+ 4.2, cta chest no PE per Rad, +chf (1) Acute viral syndrome: Status: Acute Code(s): B34.9 - Viral infection, unspecified SNOMED Code(s): 043677429 (2) Acute urinary tract infection: Status: Acute Code(s): N39.0 - Urinary tract infection, site not specified SNOMED Code(s): 952754948 (3) Acute hypokalemia: Status: Acute Code(s): E87.6 - Hypokalemia SNOMED Code(s): 22553548 (4) Sinus tachycardia: Status: Acute Code(s): R00.0 - Tachycardia, unspecified SNOMED Code(s): 73235605 Plan: stop iv hydration, give one time 40 lasix, continue iv antibiotics, check am labs
[2022-11-18] MEDS ORDERED: DUONEB NEB PRN (16:03)
[2022-11-18] MEDS ORDERED: SOLU-MEDROL 40 MG IVP SCH (16:30)
[2022-11-18] MEDS: ROCEPHIN 1 GM/50 ML D5W 1 GM/50 ML BAG IV SCH (20:05)
[2022-11-18] MEDS: TYLENOL PO PRN (22:16)
[2022-11-19] MEDS: SOLU-MEDROL 40 MG IVP SCH ×3 (01:08→11:52)
[2022-11-19 05:28] LABS: HEMATOCRIT 32.3 % (37.0-47.0); HEMOGLOBIN 10.6 g/dl (12.0-16.0); IMMATURE GRANULOCYTE % (AUTO) 0.4 % (0.0-5.0); LYMPHOCYTES # (AUTO) 0.3 K/uL (0.60-3.4); LYMPHOCYTES % (AUTO) 4.3 (10.0-50.0); MEAN CORPUSCULAR HEMOGLOBIN 29.9 pg (27.0-31.0); MEAN CORPUSCULAR HGB CONC 32.8 (31.8-35.4); MONOCYTES # (AUTO) 0.1 K/uL (0.4-2.0); MONOCYTES % (AUTO) 2.1 (0-10); NEUTROPHILS # (AUTO) 6.3 K/ul (2.0-6.9); NEUTROPHILS % (AUTO) 93.2 % (42.2-75.2); PLATELET COUNT 182 10^3/uL (140-440); RDW COEFFICIENT OF VARIATION 13.3 % (11.6-14.8); RED BLOOD COUNT 3.55 10^6/ul (4.20-5.40)
[2022-11-19 05:39] LABS: BLOOD UREA NITROGEN 19.6 mg/dL (7-17); CALCIUM 8.75 mg/dL (8.4-10.2); CARBON DIOXIDE 29.1 mmol/L (22-30.0); CHLORIDE 105.5 mmol/L (98-107); CREATININE 0.97 mg/dL (0.60-1.30); GLUCOSE 176.7 mg/dL (74-106); POTASSIUM 3.74 mmol/L (3.5-5.1); SODIUM 139.1 mmol/L (134.5-145)
[2022-11-19] MEDS: LEVAQUIN 750 MG/150 ML D5W 750 MG/150 ML BAG IV SCH (08:57)
[2022-11-19] MEDS: CALAN SR PO SCH ×2 (08:58→20:30)
--- NOTE | 2022-11-19 10:30 | PCM.PROG ---
Date Seen by Provider: 11/19/22 Time Seen by Provider: 10:26 Subjective: dx. svt, dyspnea, chf, pt much improved Objective: Vitals: T=98.0 F, P=82, R=18, SE=261/80, SPO2=96 HEENT: []conjunctiva clear Neck: []supple Lungs: [] no respiratory distress CVS: []rrr Abdomen: []nondistended Extremities: []mio Neurological: []alert and oriented Skin: []pink Lab/Tests/Diagnostic Imaging: [] K+ 3.7 (1) Acute viral syndrome: Status: Acute Code(s): B34.9 - Viral infection, unspecified SNOMED Code(s): 609541292 (2) Acute urinary tract infection: Status: Acute Code(s): N39.0 - Urinary tract infection, site not specified SNOMED Code(s): 117962461 (3) Acute hypokalemia: Status: Acute Code(s): E87.6 - Hypokalemia SNOMED Code(s): 54588506 (4) Sinus tachycardia: Status: Acute Code(s): R00.0 - Tachycardia, unspecified SNOMED Code(s): 25089959 Plan: switch to oral antibiotic, discharge home in am
[2022-11-19] MEDS: TYLENOL PO PRN (20:41)
[2022-11-19 21:39] VITALS: TEMP 97.5
[2022-11-20 04:25] LABS: HEMATOCRIT 33.7 % (37.0-47.0); HEMOGLOBIN 11.1 g/dl (12.0-16.0); MEAN CORPUSCULAR HEMOGLOBIN 29.5 pg (27.0-31.0); MEAN CORPUSCULAR HGB CONC 32.9 (31.8-35.4); MEAN CORPUSCULAR VOLUME 89.6 fl (81.0-99.0); PLATELET COUNT 243 10^3/uL (140-440); RDW COEFFICIENT OF VARIATION 13.2 % (11.6-14.8); RED BLOOD COUNT 3.76 10^6/ul (4.20-5.40); WHITE BLOOD COUNT 10.33 K/ul (4.6-10.2)
[2022-11-20 04:40] LABS: BLOOD UREA NITROGEN 26.2 mg/dL (7-17); CALCIUM 8.76 mg/dL (8.4-10.2); CHLORIDE 105.3 mmol/L (98-107); CREATININE 0.87 mg/dL (0.60-1.30); GLUCOSE 164.4 mg/dL (74-106); POTASSIUM 3.42 mmol/L (3.5-5.1); SODIUM 138.4 mmol/L (134.5-145)
[2022-11-20 04:42] LABS: ANISOCYTOSIS NOT PRESENT (NOT PRESENT)
[2022-11-20 05:47] VITALS: BP 173/98
[2022-11-20] MEDS ORDERED: LEVAQUIN PO SCH (06:30)
[2022-11-20] MEDS: CALAN SR PO SCH (09:16)
--- NOTE | 2022-11-20 09:49 | PCM.PROG ---
Date Seen by Provider: 11/20/22 Time Seen by Provider: 09:15 Subjective: Patient complains of some low back discomfort. Overall, feeling much better. Objective: Vitals: T=97.5 F, P=76, R=20, OU=144/98, SPO2=95 Alert and in NAD. Patient appears well. HEENT: [] Neck: [] No JVD. Lungs: [] Chest clear. BS equal. CVS: [] RRR. No peripheral edema. Abdomen: []Soft, nontender. No CVA tenderness. Extremities: [] Neurological: [] Skin: [] Lab/Tests/Diagnostic Imaging: [] (1) Acute viral syndrome: Status: Acute Code(s): B34.9 - Viral infection, unspecified SNOMED Code(s): 218892251 (2) Acute urinary tract infection: Status: Acute Code(s): N39.0 - Urinary tract infection, site not specified SNOMED Code(s): 429922486 (3) Acute hypokalemia: Status: Acute Code(s): E87.6 - Hypokalemia SNOMED Code(s): 94574373 Assessment: Potassium 3.4 (4) Sinus tachycardia: Status: Acute Code(s): R00.0 - Tachycardia, unspecified SNOMED Code(s): 16766421 Plan: Patient doing well. Recheck urinalysis. Potassium supplement. Discharge on levaquin.
[2022-11-20] MEDS ORDERED: K-DUR PO ONE (09:50)
--- NOTE | 2022-11-20 09:57 | PCM.DC ---
Final Diagnosis: acute viral syndrome acute urinary tract infection hypokalemia Physical Exam Appearance: Well-appearing, No pain distress and Well-nourished Ill-appearing: None Pain Distress: None Eyes: Not Examined ENT: Nose normal and Oropharynx normal Neck: Supple Respiratory: Airway patent, Breath sounds clear and Breath sounds equal Cardiovascular: RRR, No rub and No murmur GI/: Soft, Nontender, No masses, Bowel sounds normal and Other (no CVA tenderness) Musculoskeletal: Normal strength, ROM intact and No edema Skin: Warm, Dry and Normal color Neurological: Sensation intact, Motor intact, Alert and Oriented Psychiatric: Affect appropriate and Mood appropriate (1) Acute viral syndrome: Status: Acute Code(s): B34.9 - Viral infection, unspecified SNOMED Code(s): 700463213 (2) Acute urinary tract infection: Status: Acute Code(s): N39.0 - Urinary tract infection, site not specified SNOMED Code(s): 460978690 (3) Acute hypokalemia: Status: Acute Code(s): E87.6 - Hypokalemia SNOMED Code(s): 71534270 (4) Sinus tachycardia: Status: Acute Code(s): R00.0 - Tachycardia, unspecified SNOMED Code(s): 41026202 Reason for Hospitalization: Patient admitted with high fever and acute urinary tract infection. She had an acute viral syndrome as well as hypokalemia. Prognosis/Condition at Discharge: Condition at discharge was good. Medications at Discharge: Patient discharged on levaquin as well as her prior home medications. Education Provided to Patient and Family: urinary tract infection, viral syndrome Follow-ups: Follow up with your primary care provider within one week. Discharge Disposition: Home Hospital Course: Patient admitted with acute viral syndrome, acute urinary tract infection and hypokalemia. She received IV fluid hydration and potassium supplements. Patient was treated with levaquin. She defervesced and her potassium level was noted to normalize. Plan: Discharge on levaquin. Follow up with your primary care provider within one week.
[2022-11-20 10:35] LABS: BILIRUBIN,URINE Negative (NEGATIVE); CLARITY,URINE Clear (CLEAR); COLOR,URINE Yellow (YELLOW); GLUCOSE, URINE (UA) Negative (NEGATIVE); KETONES,URINE Negative (NEGATIVE); LEUKOCYTE ESTERASE ,URINE Negative (NEGATIVE); NITRITE,URINE Negative (NEGATIVE); PROTEIN,URINE 1+ (NEGATIVE); URINE, BLOOD Negative (NEGATIVE)
[2022-11-20 10:41] LABS: RENAL EPITHELIAL CELLS,URINE 0-2 (NOT PRESENT); URINE WBC, MICROSCOPIC 0-2 (0-2)
[2022-11-20 10:42] LABS: BACTERIA,URINE TRACE (NOT PRESENT); HYALINE CASTS, URINE 0-2 (NOT PRESENT)
== END 2022-11-20 11:50 | disposition home or self-care (01) | DRG 866 ==
LOC: ED 18:54 → MEDSURG A 22:13 → INTOOBSV 22:13 → OBSVTOIN 22:13 → MEDSURG A 22:35
PROVIDERS: ADMIT Surgery; ATTEND Surgery
DX: Z51.81 Encounter for therapeutic drug level monitoring; E87.6 Hypokalemia; B34.9 Viral infection, unspecified; Z79.82 Long term (current) use of aspirin; R00.0 Tachycardia, unspecified; N39.0 Urinary tract infection, site not specified; Z20.822 Contact with and (suspected) exposure to COVID-19; Z79.899 Other long term (current) drug therapy